=== PATIENT | male | born 1965 | race Caucasian/White ===

== ENCOUNTER 2020-08-03 10:24 | Emergency (ER) | payer MEDICAID, SELFPAY ==
[~2020-08-03] VITALS: Ht 172.7 cm; Wt 99.8 kg
[2020-08-03 10:45] VITALS: BP 164/87
--- NOTE | 2020-08-03 10:47 | NUR ---
TENT1
--- NOTE | 2020-08-03 11:41 | NUR ---
55/M BIB SELF C/O COUGH, CHILLS X 3 WEEKS. COVID TESTED+ 3 WEEKS AGO. DENIES PAIN AT THIS TIME.
--- NOTE | 2020-08-03 12:31 | NUR ---
ESME MODI SWAB COLLECTED. Addendum: 08/03/20 at 1238 by [email or web address] SENT TO LAB
[2020-08-03 12:38] VITALS: BP 164/87
--- NOTE | 2020-08-03 12:38 | NUR ---
Patient discharged with v/s stable. Written and verbal after care instructions given and explained. Patient verbalized understanding. Ambulatory with steady gait. All questions addressed prior to discharge. Advised to follow up with PMD.
== END 2020-08-03 12:38 | disposition home or self-care (01) ==
LOC: MED 10:24
DX: U07.1 COVID-19 (principal)
CPT/HCPCS: 71045; 99284